=== PATIENT | female | born 1975 | race Two or more races ===

== ENCOUNTER 2016-07-08 22:49 | Emergency (ER) | payer SELFPAY ==
[~2016-07-08] VITALS: Ht 152.4 cm; Wt 77.1 kg
[2016-07-08 22:51] VITALS: BP 137/101
[2016-07-08] MEDS ORDERED: LIDOCAINE 1%/EPI 1:100,000 20 ML VIAL. IJ ONE (23:15)
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
== END 2016-07-08 23:56 | disposition home or self-care (01) ==
LOC: ER 22:49
DX: S51.812A Laceration without foreign body of left forearm, initial encounter (principal); J45.909 Unspecified asthma, uncomplicated; F17.200 Nicotine dependence, unspecified, uncomplicated; W25.XXXA Contact with sharp glass, initial encounter; Y93.89 Activity, other specified; Y99.8 Other external cause status; Y92.89 Other specified places as the place of occurrence of the external cause
CPT/HCPCS: 12002; 99283; J3490